=== PATIENT | male | born 1945 | race Caucasian/White ===

== ENCOUNTER 2019-07-14 12:19 | Emergency (ER) | payer OTHER ==
--- OUTSIDE RECORDS SUMMARY | 2019-07-14 12:21 | XMS REPORT ---
:1945 [facility] Address [address] [place] [address] Care Team Providers Name Role Phone Unavailable Unavailable Unavailable Payers Payer Name Policy Type Policy Number Effective Date Expiration Date Problems This patient has no known problems. Allergies, Adverse Reactions, Alerts Allergy Allergy Status Severity Reaction(s) Onset Inactive Treating Comments Name Type Date Date Clinician No Known DA Active U 2012-07 Allergies - 00:00:0 0 Medications This patient has no known medications. Results Test Description Test Time Test Comments Text Results Atomic Results Result Comments - XR FLUORO NDL 2018-08-21 13:48:00 Patient Name: IVETT BHAKTA Unit No: [id number] EXAMS: CPT CODE: [id number] XR FLUORO NDL 67329 Fluoroscopically guided injection of the left shoulder with steroid and lidocaine COMPARISON: No prior exams available. FINDINGS: After informed consent was obtained a needle was placed in the left shoulder with fluoroscopic guidance. Its position was confirmed by injecting Isovue 300 and obtaining an AP radiograph. Subsequently 2 mL of Kenalog 40 mg per cc and 2 mL of 1 percent lidocaine was injected. No immediate complications were encountered. 8 seconds of fluoroscopy time was utilized. IMPRESSION: Technically successful steroid injection of the left shoulder at 4217 Reported and signed by: Phil Valenzuela M.D. CC: Marshal Guillen MD Technologist: Wendy An RT.(R) Transcribed D/ ([id number]) t.MARY.JOSE [facility] NAME: IVETT BHAKTA [address] [facility] PHYS: Marshal Lacey MD : 1945 AGE: 73 SEX: [place], [place] [address] LOC: Y.RAD PHONE #: [phone] EXAM DATE: 08/18/2018 STATUS: DEP CLI FAX #: [phone] RAD #: D/C DT PAGE 1 Signed Report Patient Name: IVETT BHAKTA Unit No: [id number] EXAMS: CPT CODE: [id number] XR FLUORO NDL 48867 <Continued> Orig Print D/T: S: 08/21/2018 (1351) [facility] NAME: IVETT BHAKTA [address] [facility] PHYS: Marshal Lacey MD : 1945 AGE: 73 SEX: [place], [place] [address] LOC: Y.RAD PHONE #: [phone] EXAM DATE: 08/18/2018 STATUS: DEP CLI FAX #: [phone] RAD #: D/C DT PAGE 2 Signed Report
[2019-07-14] MEDS ORDERED: DERMABOND SKIN ADHESIVE TOP ONE ×2 (13:33→13:50)
--- NOTE | 2019-07-14 13:48 | EDPHYS ---
Physician Documentation [facility] Name: Roberto Carlos Chavarria Age: 73 yrs Sex: Male : 1945 Arrival Date: 07/14/2019 Time: 12:23 Bed 17 Private MD: ED Physician Gus Fish HPI: 07/14 13:44 This 73 yrs old Male presents to ER via Ambulatory with complaints of Fall alee Injury. 13:44 Details of fall: The patient fell from an upright position, while walking. Onset: The alee symptoms/episode began/occurred just prior to arrival. Associated injuries: The patient sustained injury to the head. Severity of symptoms: At their worst the symptoms were mild, in the emergency department the symptoms are unchanged. The patient has not experienced similar symptoms in the past. Historical: - Allergies: 12:33 No Known Allergies; hb - PMHx: 12:34 Parkinsons; Hypertension; hb - Immunization history:: Adult Immunizations up to date. - Coronavirus screen:: The patient has NOT traveled to [place], [place], or [place] in the past 14 days. The patient has NOT had contact with known/suspected case of Coronavirus? Proceed with normal triage procedures. - Social history:: Smoking status: Patient denies any tobacco usage or history of. - Family history:: not pertinent. - Ebola Screening: : No symptoms or risks identified at this time. ROS: 13:44 Constitutional: Negative for fever, chills, and weight loss, Eyes: Negative for injury, alee pain, redness, and discharge, ENT: Negative for injury, pain, and discharge, Neck: Negative for injury, pain, and swelling, Cardiovascular: Negative for chest pain, palpitations, and edema, Respiratory: Negative for shortness of breath, cough, wheezing, and pleuritic chest pain, Abdomen/GI: Negative for abdominal pain, nausea, vomiting, diarrhea, and constipation, Back: Negative for injury and pain, : Negative for injury, bleeding, discharge, and swelling, MS/Extremity: Negative for injury and deformity, Neuro: Negative for headache, weakness, numbness, tingling, and seizure, Psych: Negative for depression, anxiety, suicide ideation, homicidal ideation, and hallucinations, Allergy/Immunology: Negative for hives, rash, and allergies, Endocrine: Negative for neck swelling, polydipsia, polyuria, polyphagia, and marked weight changes, Hematologic/Lymphatic: Negative for swollen nodes, abnormal bleeding, and unusual bruising. 13:44 Skin: Positive for laceration(s). Exam: 13:44 Constitutional: This is a well developed, well nourished patient who is awake, alert, alee and in no acute distress. Head/Face: Normocephalic, atraumatic. Eyes: Pupils equal round and reactive to light, extra-ocular motions intact. Lids and lashes normal. Conjunctiva and sclera are non-icteric and not injected. Cornea within normal limits. Periorbital areas with no swelling, redness, or edema. ENT: Nares patent. No nasal discharge, no septal abnormalities noted. Tympanic membranes are normal and external auditory canals are clear. Oropharynx with no redness, swelling, or masses, exudates, or evidence of obstruction, uvula midline. Mucous membranes moist. Neck: Trachea midline, no thyromegaly or masses palpated, and no cervical lymphadenopathy. Supple, full range of motion without nuchal rigidity, or vertebral point tenderness. No Meningismus. Chest/axilla: Normal chest wall appearance and motion. Nontender with no deformity. No lesions are appreciated. Cardiovascular: Regular rate and rhythm with a normal S1 and S2. No gallops, murmurs, or rubs. Normal PMI, no JVD. No pulse deficits. Respiratory: Lungs have equal breath sounds bilaterally, clear to auscultation and percussion. No rales, rhonchi or wheezes noted. No increased work of breathing, no retractions or nasal flaring. Abdomen/GI: Soft, non-tender, with normal bowel sounds. No distension or tympany. No guarding or rebound. No evidence of tenderness throughout. Back: No spinal tenderness. No costovertebral tenderness. Full range of motion. Male : Normal genitalia with no discharge or lesions. MS/ Extremity: Pulses equal, no cyanosis. Neurovascular intact. Full, normal range of motion. Neuro: Awake and alert, GCS 15, oriented to person, place, time, and situation. Cranial nerves II-XII grossly intact. Motor strength 5/5 in all extremities. Sensory grossly intact. Cerebellar exam normal. Normal gait. Psych: Awake, alert, with orientation to person, place and time. Behavior, mood, and affect are within normal limits. 13:44 Skin: injury, laceration(s), the wound is approximately 0.5 cm(s), with a depth of .25 cm(s), of the forehead. Vital Signs: 12:34 BP 169 / 82; Pulse 85; Resp 16; Temp 98.4; Pulse Ox 100% on R/A; Weight 95.25 kg; hb Height 5 ft. 8 in. (172.72 cm); Pain 2/10; 12:34 Body Mass Index 31.93 (95.25 kg, 172.72 cm) hb MDM: 12:51 Patient medically screened. [facility] 13:44 Data reviewed: vital signs, nurses notes. [facility] 07/14 13:44 Order name: Dermabond; Complete Time: 13:45 [facility] Administered Medications: 14:01 Drug: Neosporin Ointment 1 application Route: Topical; Site: affected area; sv 14:02 CANCELLED (Physician Discretion): KeFLEX 500 mg PO once sv Disposition: 07/14/19 13:48 Discharged to Home. Impression: Fall due to bumping against object, Laceration without foreign body of other part of head - forehead. - Condition is Stable. - Discharge Instructions: Head Injury, Adult, Facial Laceration, Facial Laceration, [id number], Fall Prevention in the Home, [id number], Head Injury, Adult, Yrot-cy-Shtq. - Prescriptions for Keflex 500 mg Oral Capsule - take 1 capsule by ORAL route every 6 hours for 10 days; 28 capsule. - Medication Reconciliation Form, Thank You Letter, Antibiotic Education, Prescription Opioid Use form. - Follow up: Emergency Department; When: 2 - 3 days; Reason: Recheck today's complaints, Continuance of care, Re-evaluation by your physician. - Problem is new. - Symptoms have improved. Signatures: Aniya Brady RN RN Gus Fish MD MD cha Baxter, Heather, RN RN Corrections: (The following items were deleted from the chart) 14:02 13:43 KeFLEX 500 mg PO once ordered. [facility] 14:03 13:48 07/14/2019 13:48 Discharged to Home. Impression: Fall due to bumping against sv object; Laceration without foreign body of other part of head - forehead. Condition is Stable. Forms are Medication Reconciliation Form, Thank You Letter, Antibiotic Education, Prescription Opioid Use. Follow up: Emergency Department; When: 2 - 3 days; Reason: Recheck today's complaints, Continuance of care, Re-evaluation by your physician. Problem is new. Symptoms have improved. alee
--- NOTE | 2019-07-14 13:48 | ER ---
Nurse's Notes [facility] Name: Roberto Carlos Chavarria Age: 73 yrs Sex: Male : 1945 Arrival Date: 07/14/2019 Time: 12:23 Bed 17 Private MD: Diagnosis: Fall due to bumping against object;Laceration without foreign body of other part of head-forehead Presentation: 07/14 12:32 Presenting complaint: Small laceration on forehead and abrasion on bridge of nose after hb mechanical fall from standing 30 mins [employer]. Denies other injuries, negative LOC. Care prior to arrival: None. Mechanism of Injury: Fall from standing position. Trauma event details: Injury occurred in the [facility], Injury occurred: in a public building. Injury occurred: July 14, 2019 Injury occurred at: 12:00. 12:32 Acuity: NAY 4 hb 12:32 Method Of Arrival: Ambulatory hb 12:49 Transition of care: patient was not received from another setting of care. Onset of sv symptoms was July 14, 2019. Risk Assessment: Do you want to hurt yourself or someone else? Patient reports no desire to harm self or others. Initial Sepsis Screen: Does the patient meet any 2 criteria? No. Patient's initial sepsis screen is negative. Does the patient have a suspected source of infection? No. Patient's initial sepsis screen is negative. Trauma Activation: Not Applicable Physician: ED Physician; Name: ; Notified At: ; Arrived At: Physician: General Surgeon; Name: ; Notified At: ; Arrived At: Physician: Radiology; Name: ; Notified At: ; Arrived At: Physician: Respiratory; Name: ; Notified At: ; Arrived At: Physician: Lab; Name: ; Notified At: ; Arrived At: Historical: - Allergies: 12:33 No Known Allergies; hb - PMHx: 12:34 Parkinsons; Hypertension; hb - Immunization history:: Adult Immunizations up to date. - Coronavirus screen:: The patient has NOT traveled to [place], [place], or [place] in the past 14 days. The patient has NOT had contact with known/suspected case of Coronavirus? Proceed with normal triage procedures. - Social history:: Smoking status: Patient denies any tobacco usage or history of. - Family history:: not pertinent. - Ebola Screening: : No symptoms or risks identified at this time. Screenin:49 Abuse screen: Denies threats or abuse. Denies injuries from another. Nutritional sv screening: No deficits noted. Tuberculosis screening: No symptoms or risk factors identified. Fall Risk None identified. Assessment: 12:46 General: Appears in no apparent distress. comfortable, well groomed, well developed, sv Behavior is calm, cooperative, appropriate for age. Pain: Complains of pain in nose Pain currently is 2 out of 10 on a pain scale. Is intermittent. Neuro: Level of Consciousness is awake, alert, obeys commands, Oriented to person, place, time, situation, Moves all extremities. Full function Speech is normal. Cardiovascular: Patient's skin is warm and dry. Respiratory: Airway is patent Respiratory effort is even, unlabored, Respiratory pattern is regular, symmetrical. Derm: Skin is pink, warm \T\ dry. Musculoskeletal: Range of motion: intact in all extremities. Injury Description: Abrasion sustained to nose is scabbed, Laceration sustained to forehead is 0.5 to 2.5 cm long, not bleeding, no active bleeding noted at this time. 14:03 Reassessment: Patient appears in no apparent distress at this time. No changes from sv previously documented assessment. Patient and/or family updated on plan of care and expected duration. Pain level reassessed. Patient is alert, oriented x 3, equal unlabored respirations, skin warm/dry/pink. Vital Signs: 12:34 BP 169 / 82; Pulse 85; Resp 16; Temp 98.4; Pulse Ox 100% on R/A; Weight 95.25 kg; hb Height 5 ft. 8 in. (172.72 cm); Pain 2/10; 12:34 Body Mass Index 31.93 (95.25 kg, 172.72 cm) hb ED Course: 12:23 Patient arrived in ED. fj1 12:33 Triage completed. hb 12:34 Arm band placed on. hb 12:46 Aniya Brady RN is Primary Nurse. sv 12:49 Patient has correct armband on for positive identification. Bed in low position. Call sv light in reach. Adult w/ patient. Door closed. Head of bed elevated. 12:51 Gus Fish MD is Attending Physician. alee 13:07 Awaiting ED provider evaluation. sv 14:00 Assist provider with laceration repair on forehead that was 2.5 cm. or less using sv Dermabond. Set up tray. Performed by Gus Fish MD Patient tolerated well. Patient did not have IV access during this emergency room visit. Administered Medications: 14:01 Drug: Neosporin Ointment 1 application Route: Topical; Site: affected area; sv 14:02 CANCELLED (Physician Discretion): KeFLEX 500 mg PO once sv Outcome: 13:48 Discharge ordered by . alee 14:03 Discharged to home ambulatory, with family, with his cane sv 14:03 Condition: stable 14:03 Discharge instructions given to patient, family, Instructed on discharge instructions, follow up and referral plans. medication usage, wound care, Demonstrated understanding of instructions, follow-up care, medications, wound care, Prescriptions given X 1. 14:03 Patient left the ED. sv Signatures: Aniya Brady, RN Gus Nash MD MD cha Baxter, Heather, CAREN RN tamra Lyn, Lorne fj1
[2019-07-14 14:09] VITALS: BP 169/82; TEMP 98.4; O2SAT 100
== END 2019-07-14 14:03 | disposition home or self-care (01) ==
LOC: ER 12:19
PROC: 0JQ10ZZ Repair Face Subcutaneous Tissue and Fascia, Open Approach (ICD-10-PCS; principal; 2019-07-14)
DX: S01.81XA Laceration without foreign body of other part of head, initial encounter (principal); W18.00XA Striking against unspecified object with subsequent fall, initial encounter; Y93.01 Activity, walking, marching and hiking; Y92.9 Unspecified place or not applicable; I10 Essential (primary) hypertension; G20 Parkinson's disease
CPT/HCPCS: 99283